=== PATIENT | female | born 1955 | race Caucasian/White ===

== ENCOUNTER 2024-07-02 23:18 | Inpatient (IN) | payer OTHER, SELFPAY ==
[2024-07-02 18:11] VITALS: BP 181/93
[2024-07-02 18:36] LABS: % Basophils 0.2 % (0-2); % Eosinophils 1.3 % (0-6); % Immature Granulocytes 0.4 % (0-0.5); % Lymphocytes 16.1 % (20.5-51.1); Absolute Eosinophils 0.2 10^3/uL (0-0.7); Absolute Immature Granulocytes 0.1 10^3/uL (0-0.05); Absolute Monocytes 0.6 10^3/uL (0.1-0.6); Absolute Neutrophils 9.8 10^3/uL (1.4-6.5); Hematocrit 47.8 % (37.0-47.0); Hemoglobin 16.4 g/dL (12.0-16.0); Mean Corp Hgb Conc. 34.3 g/dL (33.0-37.0); Mean Corpuscular Hgb 30.5 pg (27.0-31.0); Mean Platelet Volume 8.7 fL (7.4-10.4); Nucleated Red Blood Cells % 0 %; Platelet Count 205 10^3/uL (130-400); Red Blood Cell Count 5.37 10^6/uL (4.20-5.40); Red Cell Dist. Width 12.8 % (11.5-14.5); White Blood Cell Count 12.7 10^3/uL (4.8-10.8)
[2024-07-02 18:43] LABS: Urine Albumin 2+ (Neg - Trace); Urine Bilirubin Negative (Negative); Urine Character Cloudy (Clear); Urine Color Yellow; Urine Glucose Negative (Negative); Urine Ketone Negative (Negative); Urine Leukocyte 3+ (Negative); Urine Nitrite Positive (Negative); Urine Occult Blood 4+ (Negative); Urine Specific Gravity 1.025 (<1.030); Urine Urobilinogen Negative (Neg - 1+)
[2024-07-02 18:53] LABS: ALT (SGPT) 42 U/L (0-35); AST (SGOT) 28 U/L (14-36); Albumin 4.6 g/dl (3.5-5.0); Alkaline Phosphatase 79 U/L (38-126); Blood Urea Nitrogen 24 mg/dl (7-17); Calcium 9.8 mg/dl (8.4-10.2); Carbon Dioxide 34 mmol/L (22-30); Chloride 98 mmol/L (98-107); Glucose 123 mg/dl (70-99); Potassium 3.6 mmol/L (3.5-5.1); Sodium 140 mmol/L (135-145); Total Bilirubin 0.8 mg/dl (0.2-1.3); Total Protein 7.5 g/dl (6.3-8.2); eGFR > 60.00
[2024-07-02 19:06] LABS: Urine Urothelial Cell 0-2 /LPF (FEW)
[2024-07-02 19:07] LABS: Urine Bacteria Many (Negative); Urine Red Blood Cell 16-20 /HPF (0-2); Urine White Cell 90-100 /HPF (0-5)
[2024-07-02] MEDS: TORADOL 15 MG IV (19:27)
[2024-07-02] MEDS: NSS 1000 IV (19:27)
[2024-07-02] MEDS: ZOFRAN 4 MG IV (19:27)
--- NOTE | 2024-07-02 19:53 | ED.GENMED ---
History of Present Illness
General
Chief Complaint: Flank Pain
Source: patient
Exam Limitations: none
Time Seen by Provider: 07/02/24 18:36
Nursing documentation reviewed up to this point in time: agreed with
History of Present Illness
History of Present Illness:
Patient is a 68-year-old female presenting to the emergency department w/ left flank pain. Patient reports intermittent left-sided flank pain over the past 2 weeks although reports significant worsening today. She endorses sharp pain from her left
low back radiating to her left lower abdomen. Patient describes waves of pain and states it is worse when she is sitting up. Patient reports constant nausea and frequent dry heaves. Patient denies any associated dysuria or hematuria. No diarrhea
or constipation. No fevers or chills. No chest pain or shortness of breath.
Patient does have a history of kidney stones and states this does feel somewhat similar.
Patient denies any known sick contacts.
Review of Systems
Review of Systems
Allergies reviewed?: Yes
All Other Systems: ROS reviewed and negative except as documented in HPI and ROS
Phy Exam
Physical Exam
Physical Exam:
Vitals: Hypertensive, otherwise vital signs stable. Afebrile
General: Patient is moderately uncomfortable due to pain.
Skin: Warm and dry, no rashes or lesions
Head: Normocephalic, atraumatic
Eyes: Sclera nonicteric. EOMs intact. No nystagmus.
Throat: Protecting airway
Neck: Normal ROM, no cervical spine tenderness, no meningismus
Cardiac: Regular rate and rhythm, no murmurs.
Pulm: Normal respiratory effort, no wheezes, rales, rhonchi heard on exam.
Abdomen: Abdomen soft. Mild diffuse abdominal tenderness without rebound tenderness or guarding. Left-sided CVA tenderness noted
Extremities: No evidence of cyanosis or edema.
Neuro: AAOx3. Grossly intact.
Psychiatric: Normal affect.
Course
Orders/Labs/Results
Orders:
Orders
07/02/24 18:20
Complete Blood Count/With Diff Urgent
Comprehensive Metabolic Panel Urgent
07/02/24 18:25
Urinalysis Reflex To Culture Urgent
Date Specimen was Collected: 07/02/24
Time Specimen was Collected: 18:14
Urine Microscopic Reflex Cult Urgent
Urine Culture Urgent
SHAHID Source: U
Specimen Description:
Date Specimen was Collected: 07/02/24
Time Specimen was Collected: 18:14
07/02/24 19:18
Abdomen/Pelvis wo Contrast CT [CT Abd/pelvis Wo Iv Cont] Urgent
Comment:
Reason For Exam: L flank pain, +N/+V
0.9% Sodium Chloride 1000 ml [Nss] 1,000 ml IV BOLUS
Ketorolac [Toradol] 15 mg IV NOW STA
Ondansetron Injectable [Zofran] 4 mg IV NOW STA
07/02/24 19:53
HYDROmorphone [Dilaudid] 0.5 mg IV NOW STA
07/02/24 21:57
HYDROmorphone [Dilaudid] 0.5 mg IV NOW STA
07/02/24 22:02
CefTRIAXone [Rocephin] 1,000 mg IV NOW STA
07/02/24 22:31
Admit/Transfer Patient As Directed
Co-Sign Provider:
Level of Care: Inpatient admission
Assign to:: Medical/Surgical
Physician / Group: ted
Diagnosis: obstruting ureter stone
Reason for Hospitalization: obstructing ureter stone
Expected length of stay greater than two midnights?: Yes
ELOS- Estimated Length of Stay in days: 3
I certify the patient meets the requirements for IP care: Yes
PRN Pain Medication Management As Directed
May give lesser potent ordered pain med per pt: Yes
preference::
Protocol:: Medication orders for pain may be administered in a
manner that supports deferring to patient preference
when the pt is:
- Requesting an ordered lesser potent pain medication.
Least to most potent pain medications are defined
as: acetaminophen < NSAID < tramadol < opioids
(morphine, oxycodone, hydromorphone).
- Requesting a lesser dose of the same medication IF
ORDERED.
- Requesting a less intrusive route of administration
if both routes are prescribed by the provider (PO <
IV).
07/02/24 22:32
Code Status As Directed
Resuscitation Status: Full Code
07/02/24 23:52
0.9% Sodium Chloride 1000 ml [Nss] 1,000 ml IV 100 mls/hr
Acetaminophen [Tylenol] 650 mg PO Q4HPRN PRN
Bisacodyl [Dulcolax] 10 mg RECTAL [id number] PRN
Docusate W/Senna [Senokot-S] 1 tablet PO BIDPRN PRN
HYDROmorphone [Dilaudid] 1 mg IV Q4HPRN PRN
Oxycodone [Roxicodone] 5 mg PO Q4HPRN PRN
Polyethylene Glycol Powder [Miralax] 17 grams PO DAILYPRN PRN
Tamsulosin [Flomax] 0.4 mg PO DAILY
07/02/24 23:52
UROLOGY CONSULT Routine
Consulting Provider: Reji Mason
Was physician already notified: Yes
Activity As Directed
Activity Level: As Tolerated
Pneumatic Compression Sleeves As Directed
Type: Knee high
Strain Urine As Directed
Vital Signs As Directed
Frequency: Per unit guidelines
DX Deep Vein Thrombosis Video Routine
07/03/24 Breakfast
NPO
Allow oral meds: Yes
Allow clear liquids: No
07/03/24 07:12
Complete Blood Count/No Diff IN AM
07/03/24 08:00
Valsartan [Diovan] 160 mg PO DAILY
07/03/24 22:00
CefTRIAXone [Rocephin] 1,000 mg IV Q24H
07/04/24 06:00
Complete Blood Count/No Diff IN AM
07/05/24 06:00
Complete Blood Count/No Diff IN AM
Abnormal Lab Results
07/02/24 07/02/24
18:20 18:25
WBC 12.7 H 10^3/uL
(4.8-10.8)
Hgb 16.4 H g/dL
(12.0-16.0)
Hct 47.8 H %
(37.0-47.0)
Abs Immat Gran (auto) 0.1 H 10^3/uL
(0-0.05)
Absolute Neuts (auto) 9.8 H 10^3/uL
(1.4-6.5)
Neutrophils % 77.0 H %
(42.2-75.2)
Lymphocytes % 16.1 L %
(20.5-51.1)
Carbon Dioxide 34 H mmol/L
(22-30)
BUN 24 H mg/dl
(7-17)
Glucose 123 H mg/dl
(70-99)
ALT 42 H U/L
(0-35)
Ur Occult Blood Reflex 4+ A
(Negative)
Urine Nitrite (Reflex) Positive A
(Negative)
Leukocyte Esterase Rfl 3+ A
(Negative)
Urine RBC 16-20 A /HPF
(0-2)
Urine WBC (Reflex) 90-100 A /HPF
(0-5)
Urine Bacteria (Reflex) Many A
(Negative)
Urine Albumin (Reflex) 2+ A
(Neg - Trace)
07/02/24 18:20
07/02/24 18:20
Vital Signs
Initial and Last Documented VS:
Initial Vital Signs
Temp Pulse Resp BP Pulse Ox
97.7 F 76 16 181/93 98
07/02/24 18:11 07/02/24 18:11 07/02/24 18:11 07/02/24 18:11 07/02/24 18:11
Last Documented Vital Signs
Temp Pulse Resp BP Pulse Ox
97.8 F 82 18 114/60 93
07/03/24 17:00 07/03/24 18:00 07/03/24 18:00 07/03/24 18:00 07/03/24 18:00
MDM/Problems Addressed
Differential Diagnosis Includes:
Not limited to: Kidney stones, pyelonephritis, cystitis, diverticulitis, muscle strain, etc.
MDM/Problems Addressed:
68-year-old female with history as documented presenting with left flank pain associated with dry heaves. No fevers, chills, dysuria, chest pain, or shortness of breath. Patient hypertensive on arrival, otherwise stable vital signs. She is
afebrile. On exam�patient is in moderate distress due to pain. Abdomen soft with very diffuse tenderness, no rebound tenderness or guarding. Mild left-sided CVA tenderness noted. Basic labs initiated in triage significant for a leukocytosis of
12.7. Otherwise no clinically significant abnormalities. No renal insufficiency urinalysis pending. Differential broad although given history and physical exam�concern for possible kidney stone versus pyelonephritis. Lower suspicion for
diverticulitis. No rash to suggest zoster. Do not suspect MSK etiology at this point. UA pending. Will check noncontrast CT abdomen/pelvis. Will give pain control, IV fluids, Zofran. Will closely monitor and reassess.
Update: UA suspicious for infection, nitrate positive, 3+ leukocyte esterase, and many WBCs, along with many RBCs. CT scan does show a 4 mm obstructing calculus in distal left ureter with moderate hydronephrosis and perinephric edema. Patient has
required multiple rounds of pain medication in the emergency department. Although stone 4 mm in size�given intractable pain along with concern for infected stone given associated UTI�will admit to hospitalist for further management. Penicillin
allergy noted and discussed with patient however she states that she has tolerated amoxicillin in the past. IV Rocephin given in ED. Case was discussed with urology, Dr. Mason.
Chronic conditions affecting care:
History of kidney stones
Acute Exacerbation and/or Progression of Chronic Illness:
N/A
*Radiology
Radiology exam reviewed: radiology read reviewed
*Pulse Oximetry
Patient hypoxic: no
*EKG
Interpreted by ED Provider?: NA
*Wallpaper Inspector And Shipper Interpretation
Rate: Wallpaper Inspector And Shipper- N/A
*Critical Care Note
Total Time (30-74mins, 75-104mins- exclusive of procedures): Not Applicable
Patient Management
Discussion with other providers: Hospitalist and Event Security Officer
Escalation/DeEscalation of care consider admission/obs:
Admit for pain management, IV antibiotic
ED Attending Note
-
Portions of this chart may have been created with voice recognition software.� Occasional wrong word or��sound alike� substitutions may have occurred due to the inherent limitations of voice recognition software.
Discharge Plan
Departure
Patient Disposition: Admit
Date of Disposition: 07/02/24
Time of Disposition: 22:06
Presentation/result/management discussed w/ accepting MD/DO: Hospitalist
Discharge Problem:
Left ureteral calculus, Acute UTI
Interventions
Interventions:
*Risk Screen - Suicide Last Done: 07/02/24 18:11
*General Assessment Last Done: 07/02/24 18:39
*Neglect/Abuse Screening Last Done: 07/02/24 18:11
ED- Fall Risk Assessment Last Done: 07/03/24 05:39
*ED COVID-19 Vaccine History Last Done: 07/02/24 18:39
*Nursing Disposition Last Done: 07/03/24 05:40
CY-Qrggil-Atjwcwjipp Assessment Last Done: 07/02/24 18:40
ED-Female Genitourinary Assessment Last Done: 07/02/24 18:41
Discharge Date and Time
Discharge Date/Time: 07/03/24 05:40
[2024-07-02] MEDS: DILAUDID 0.5 MG IV ×2 (19:56→22:29)
--- NOTE | 2024-07-02 22:16 | HPS.HSE ---
Addendum entered and electronically signed by Michele Akers DO 07/02/24 22:57:
Patient seen and examined independently. Agree with findings and plan as set forth by EDILBERTO Fair.
Patient is a 68y F with PMH significant for nephrolithiasis and hypertension who presents to ED complaining of L flank pain. Pain has been mild / intermittent for a few weeks but became much more severe and unrelenting today. Patient reports
associated nausea / dry heaves. No fevers / chills. She has prior history of kidney stones previously requiring intervention.
Imaging in the ED today reveals 4mm distal L ureteral stone.
Ass:
Left Ureteral Stone
UTI
Benign Hypertension
Plan:
Admit for further evaluation and treatment.
Supportive care, pain control, tamsulosin, etc.
IV ceftriaxone for now.
Urology consulted for possible intervention if stone is not spontaneously passed.
Original Note:
Family Physician
-
Family Physician: Ko Briggs
Chief Complaint
-
left flank pain
History of Present Illness
68-year-old female with PMH for HTN, kidney stones presenting to the emergency department w/ left flank pain for past two week intermittently. today afternoon it progressively got worse with nausea and dry heaving. Patient denies any associated
dysuria or hematuria. No diarrhea or constipation. No fevers or chills. No chest pain or shortness of breath.
CT with 4 MM obstructing stone within the distal left ureter with associated moderate hydroureteronephrosis. UA wit UTI. patient received ceftriaxone and Dilauidid prn for pain
Medical History
Past Medical History
Past Medical History: Reports Other
Additional Past Medical History:
HTN
Past Surgical History: Reports Other
Additional Past Surgical History:
cholecystectomy
kidney stone extraction
Social History
Tobacco: Former Smoker
Alcohol: None
Drug: None
Family History
Family History: Not pertinent
Allergies / Home Medications
Allergies reflects when Allergies were last updated in [facility].
Home Medications with original date entered in [facility]
Allergy/Medication List:
Allergies
Allergy/AdvReac Type Severity Reaction Status Date / Time
Penicillins Allergy Unknown Hives Verified 07/02/24 18:14
Home Medications
valsartan 160 mg-hydrochlorothiazide 25 mg tablet 1 tab PO DAILY 09/18/22
sulfamethoxazole 800 mg-trimethoprim 160 mg tablet 1 tab PO BID 4 days #8 tabs 09/22/22
Review of Systems
-
Constitutional: Reports No Symptoms
EENT: Reports No Symptoms
Respiratory: Reports No Symptoms
Cardiac: Reports No Symptoms
Abdomen/GI: Reports Nausea
: Reports Flank Pain (left flank pain)
Musculoskeletal: Reports No Symptoms
Skin: Reports No Symptoms
Neurological: Reports No Symptoms
Endocrine: Reports No Symptoms
Hematologic/Lymphatic: Reports No Symptoms
Psych: Reports No Symptoms
Physical Exam
Vital Signs
Vital Signs
Temp Pulse Resp BP Pulse Ox
97.7 F 76 16 181/93 98
07/02/24 18:11 07/02/24 18:11 07/02/24 18:11 07/02/24 18:11 07/02/24 18:11
Physical Exam
General: Well Developed, Well Nourished and No Apparent Distress
HEENT: NormoCephalic, Moist mucous membranes and Atraumatic
Respiratory: Clear
Cardiac: S1/S2 and Regular Rhythm; No Murmur or Rub
GI: Soft, Non Tender, Non Distended and Normal Bowel Sounds; No Organomegaly
Rectal: Deferred by Provider
Musculoskeletal: No Clubbing, No Cyanosis and No Edema
Skin: No Rash
Neuro: AO x 3 and Nonfocal/grossly intact
Psych: Calm
Laboratory Results
-
07/02/24 18:20
07/02/24 18:20
Laboratory Results
Total Bilirubin 0.8 mg/dl (0.2-1.3) 07/02/24 18:20
AST 28 U/L (14-36) 07/02/24 18:20
ALT 42 U/L (0-35) H 07/02/24 18:20
Alkaline Phosphatase 79 U/L (38-126) 07/02/24 18:20
Data Reviewed
-
CT Scan: Report Reviewed by me
Lab Data: Labs Reviewed by me
Impression/Plan
-
#intractable pain from obstructing stone of distal left ureter
#UTI
-wbc 12.7
-Ct abdomen pelvis with the impression of 4 mm obstructing stone within the distal left ureter with associated moderate hydroureteronephrosis. Nonspecific left perinephric edema.Hepatomegaly with hepatic steatosis.
Enlarged uterus with numerous calcifications, likely uterine fibroids.
-iv ceftriaxone continued
-Tylenol prn for pain or fever
-oxy, Dilaudid prn for pain
-Flomax added
-ceftriaxone continued
-strain urine
-urology consulted
#hemoconcentration likely dehydration
-hgb 16.4
-fluids continued
-CBC in am
#essential HTN
-valsartan continued
-hold HCTZ
#DVT prophylaxis
-SCD
#CODE status
-full code
[2024-07-02] MEDS: ROCEPHIN 1000 MG IV (22:30)
[2024-07-02 22:37] VITALS: BP 120/59
[2024-07-02 23:00] VITALS: BP 140/71
[2024-07-03] VITALS (15 sets, daily range): BP systolic 110–158; BP diastolic 55–98; BMI 41.2
[2024-07-03] MEDS: NSS 1000 IV ×3 (01:40→22:17)
[2024-07-03] MEDS: FLOMAX 0.4 MG PO ×2 (01:43→08:50)
[2024-07-03] MEDS: ZOFRAN 4 MG IV (02:13)
[2024-07-03] MEDS: ROXICODONE 5 MG PO (04:19)
[2024-07-03] MEDS: DILAUDID 1 MG IV ×2 (05:59→11:39)
--- NOTE | 2024-07-03 08:11 | W.PN.HOSP.TC ---
Today's Communication/Plan
-
Urology taking her to the OR. Continue antibiotics
Assessment / Plan
Assessment / Plan
Physical exam:
General: Acutely ill
HEENT: Normocephalic, Atraumatic and Moist Mucous Membranes
Respiratory: Clear to Auscultation; Negative Wheezes, Rales or Rhonchi
Cardiac: Regular Rhythm and S1/S2
GI: Soft, Tender and Nondistended
Musculoskeletal: No Clubbing, No Cyanosis and No Edema
Neuro: Awake, Alert and Oriented
Psych: Calm
A/P:
#intractable pain from obstructing stone of distal left ureter
#UTI
-wbc 12.7-->18.2
-Ct abdomen pelvis with the impression of 4 mm obstructing stone within the distal left ureter with associated moderate hydroureteronephrosis. Nonspecific left perinephric edema.Hepatomegaly with hepatic steatosis.
Enlarged uterus with numerous calcifications, likely uterine fibroids.
-iv ceftriaxone continued
-Tylenol prn for pain or fever
-oxy, Dilaudid prn for pain
-Flomax added
-ceftriaxone continued. On review of records she had an apparent reaction to cephalosporin on last admission but interestingly she is tolerating cephalosporin okay at this time. Follow-up urine culture
-strain urine
-urology consulted-appreciated input and plan to go to the OR today
#hemoconcentration likely dehydration
-hgb 16.4--> 14.1
-fluids continued
-CBC in am
#essential HTN
-valsartan continued
-hold HCTZ
#DVT prophylaxis
-SCD
#CODE status
-full code
Anticipated Discharge: 24 - 48 hours
Subjective/Interval History
-
Date of Service: July 03, 2024
Patient with significant amount of flank pain. No chest pain or shortness of breath.
Objective Data
-
Labs:
Laboratory Results
07/03/24
07:12
WBC Pending
Hgb Pending
Hct Pending
Plt Count Pending
Vital Signs:
Vital Signs
Temp Pulse Resp BP Pulse Ox
98.6 F 85 18 130/68 96
07/03/24 07:27 07/03/24 07:21 07/03/24 07:21 07/03/24 07:21 07/03/24 07:21
[2024-07-03 08:17] LABS: Hemoglobin 14.1 g/dL (12.0-16.0); Mean Corp Hgb Conc. 32.8 g/dL (33.0-37.0); Mean Corpuscular Hgb 30.3 pg (27.0-31.0); Mean Corpuscular Volume 92.3 fL (81.0-99.0); Mean Platelet Volume 9.1 fL (7.4-10.4); Platelet Count 151 10^3/uL (130-400); Red Blood Cell Count 4.66 10^6/uL (4.20-5.40); Red Cell Dist. Width 12.9 % (11.5-14.5); White Blood Cell Count 18.2 10^3/uL (4.8-10.8)
[2024-07-03] MEDS: DIOVAN 160 MG PO (08:50)
--- NOTE | 2024-07-03 09:43 | W.PN.URO.CBU ---
Today's Communication / Plan
-
npo for op room later toiday
Assessment / Plan
-
4mm stone but intracatable pain consented for surgery will obsrve this am but if still pain then u scope and attemp t to remove stone and leave stent
Diagnosis
-
Date of Service: July 03, 2024
-
Patient Diagnosis:left uretral stone with obstruction 18 k wbc and intractable pain no fever
Post Op Day:
Subjective
-
pain feels poorly
Objective
-
Vital Signs
Temp Pulse Resp BP Pulse Ox
98.6 F 85 18 130/68 96
07/03/24 07:27 07/03/24 07:21 07/03/24 07:21 07/03/24 07:21 07/03/24 07:21
Laboratory Results
07/03/24 07:12
07/02/24 18:20
Review of Systems
-
: Flank Pain
Physical Exam
-
General - well developed, well nourished, painn non toxic
Chest - clear bilaterally
Abdomen - soft, non-tender, positive bowel sounds, left CVAT, no incisional pain or distention
Genitalia - normal
Rectal - normal
Skin - warm & dry with no rash
Neuro - AOx3, no motor deficits
Extremities - no clubbing, no cyanosis, no edema
Incision - clean, dry
Dressing - clean, dry, intact
Care Review
Data Reviewed
Discussed with: Nursing
CT Scan: Image Pers Reviewed
--- NOTE | 2024-07-03 15:52 | W.SUR.POST ---
Surgical Immediate Post Op
Note
Pre Op Diagnosis: left uretal stone with obstruction
Post Op Diagnosis: same
Procedure Performed: left uretroscpy stone extractio withbasket jj stent
flashner
Secondary Surgeons:
Anesthesiageneral:
Estimated Blood Loss: 1
Fluids:
Drains/Shunts: 6 fr 24 cm jj stent
Specimens/Cultures:
Doppler/Duplex/Angio (Y/N):
Complications:0
Operative Findings: 4 mm stone left ureter
[2024-07-03] MEDS: Pyridium 100 MG PO (16:27)
[2024-07-03 19:27] LABS: Hepatitis C Antibody Negative (Negative)
[2024-07-03] MEDS: ROCEPHIN 1000 MG IV (22:17)
[2024-07-03] MEDS: STERILE WATER FOR INJECTION 10 ML IV (22:17)
[2024-07-04] MEDS: ROXICODONE 5 MG PO (00:24)
[2024-07-04 03:55] VITALS: BP 110/60
[2024-07-04 07:15] VITALS: BP 113/66
[2024-07-04] MEDS: NSS 1000 IV (07:38)
[2024-07-04] MEDS: Pyridium 100 MG PO ×2 (07:38)
[2024-07-04] MEDS: DIOVAN 160 MG PO (07:38)
[2024-07-04] MEDS: FLOMAX 0.4 MG PO (07:38)
[2024-07-04] MEDS: TYLENOL 650 MG PO (07:39)
[2024-07-04 07:46] LABS: % Basophils 0.1 % (0-2); % Immature Granulocytes 0.7 % (0-0.5); % Lymphocytes 3.5 % (20.5-51.1); % Monocytes 4.6 % (1.7-9.3); % Neutrophils 91.1 % (42.2-75.2); Absolute Immature Granulocytes 0.1 10^3/uL (0-0.05); Absolute Lymphocytes 0.5 10^3/uL (1.2-3.4); Absolute Monocytes 0.7 10^3/uL (0.1-0.6); Absolute Neutrophils 13.5 10^3/uL (1.4-6.5); Hemoglobin 13.4 g/dL (12.0-16.0); Mean Corp Hgb Conc. 32.7 g/dL (33.0-37.0); Mean Corpuscular Hgb 30.5 pg (27.0-31.0); Mean Corpuscular Volume 93.4 fL (81.0-99.0); Nucleated Red Blood Cells % 0 %; Platelet Count 143 10^3/uL (130-400); Red Blood Cell Count 4.39 10^6/uL (4.20-5.40); White Blood Cell Count 14.8 10^3/uL (4.8-10.8)
[2024-07-04 08:19] LABS: Blood Urea Nitrogen 24 mg/dl (7-17); Calcium 7.9 mg/dl (8.4-10.2); Carbon Dioxide 29 mmol/L (22-30); Chloride 103 mmol/L (98-107); Estimated Creatinine Clearance 111 ml/min; Glucose 127 mg/dl (70-99); Potassium 3.5 mmol/L (3.5-5.1); Sodium 139 mmol/L (135-145); eGFR > 60.00
--- NOTE | 2024-07-04 09:06 | W.PN.URO.CBU ---
Today's Communication / Plan
-
ok for d/c pendinh=[]g input from hospitalist
Assessment / Plan
-
stable post op home with po abs today if ok by hospitalsirt wbc down
Diagnosis
-
Date of Service: July 04, 2024
-
Patient Diagnosis:
Post Op Day:
Patient Diagnosis:left uretral stone with obstruction 18 k wbc and intractable pain no fever
Post Op Day:
Subjective
-
frequency no fevr chills no colic
Objective
-
Vital Signs
Temp Pulse Resp BP Pulse Ox
97.6 F 73 18 113/66 93
07/04/24 07:15 07/04/24 07:15 07/04/24 07:15 07/04/24 07:15 07/04/24 07:15
Intake and Output
07/03/24 07/04/24 07/05/24
06:59 06:59 06:59
Intake Total 1655 / 1655
Output Total 625 / 625
Balance 1030 / 1030
Intake:
Oral fluids 480 / 480
IV fluids (Total) 1175 / 1175
normosol 75 / 75
Output:
Urine, Voided 625 / 625
Other:
Number of approximated MODERATE 1
amounts of urine
How many times incontinent 1
SATURATED amount urine
Laboratory Results
07/04/24 07:12
07/04/24 07:12
Review of Systems
-
: Dysuria and Frequency
Physical Exam
-
General - well developed, well nourished, no acute distress
Chest - clear bilaterally
Abdomen - soft, non-tender, positive bowel sounds, no CVAT, no incisional pain or distention
Genitalia - normal
Rectal - normal
Skin - warm & dry with no rash
Neuro - AOx3, no motor deficits
Extremities - no clubbing, no cyanosis, no edema
Incision - clean, dry
Dressing - clean, dry, intact
Care Review
Data Reviewed
Discussed with: Nursing
--- NOTE | 2024-07-04 09:30 | W.PN.HOSP.TC ---
Addendum entered and electronically signed by Mike Payan MD 07/04/24 16:27:
Obesity
Original Note:
Today's Communication/Plan
-
Discharge planning today
Assessment / Plan
Assessment / Plan
Physical exam:
General: No acute distress
HEENT: Normocephalic, Atraumatic and Moist Mucous Membranes
Respiratory: Clear to Auscultation; Negative Wheezes, Rales or Rhonchi
Cardiac: Regular Rhythm and S1/S2
GI: Soft, Tender and Nondistended
Musculoskeletal: No Clubbing, No Cyanosis and No Edema
Neuro: Awake, Alert and Oriented
Psych: Calm
A/P:
#intractable pain from obstructing stone of distal left ureter
#UTI
-wbc 12.7-->18.2--> 14.8
-Ct abdomen pelvis with the impression of 4 mm obstructing stone within the distal left ureter with associated moderate hydroureteronephrosis. Nonspecific left perinephric edema.Hepatomegaly with hepatic steatosis.
Enlarged uterus with numerous calcifications, likely uterine fibroids.
-iv ceftriaxone continued and now switched to oral antibiotics prior to discharge
-Tylenol prn for pain or fever
-oxy, Dilaudid prn for pain
-Flomax added
-ceftriaxone continued. On review of records she had an apparent reaction to cephalosporin on last admission but interestingly she is tolerating cephalosporin okay at this time. Follow-up urine culture growing E. coli sensitivities pending.
-strain urine
-urology consulted-appreciated input status post cystoscopy, left ureteroscopy, stone manipulation with basket, left double-J stent placement on 07/03.
-Urology cleared for discharge. Can follow-up sensitivity of cultures as outpatient.
-Plan for discharge today
#hemoconcentration likely dehydration
-hgb 16.4--> 14.1
-fluids continued
-CBC OP
#essential HTN
-valsartan continued
-held HCTZ but can resume now
#DVT prophylaxis
-SCD
#CODE status
-full code
Anticipated Discharge: Today
Subjective/Interval History
-
Date of Service: July 04, 2024
Patient feels better. Afebrile
Objective Data
-
Labs:
Laboratory Results
07/04/24
07:12
WBC 14.8 H
Hgb 13.4
Hct 41.0
Plt Count 143
Sodium 139
Potassium 3.5
Chloride 103
Carbon Dioxide 29
BUN 24 H
Creatinine 0.6
Glucose 127 H
Calcium 7.9 L D
Vital Signs:
Vital Signs
Temp Pulse Resp BP Pulse Ox
97.6 F 73 18 113/66 93
07/04/24 07:15 07/04/24 07:15 07/04/24 07:15 07/04/24 07:15 07/04/24 07:15
I&O
07/03/24 07/04/24 07/05/24
06:59 06:59 06:59
Intake Total 1655 / 1655
Output Total 625 / 625
Balance 1030 / 1030
--- NOTE | 2024-07-04 10:18 | PN.CDI ---
CDI
- -
CDI:
Physician Documentation Request
Admit Date: 07/02/24 23:18
Dear Doctor Schuyler,
Patient admitted with ureter stone.
Please review the following and provide your response in the progress notes.
Clinical Indicators:
Height: 5' 4'
Weight: 239 lbs
BMI: 41.1
If possible, please provide an associated diagnosis related to the abnormal BMI, such as:
Obese
Overweight
BMI is not significant
Other
BMI > or = to 40.0
Overweight
Obesity:
Due to excess calories
Drug induced
Due to other cause
Severe or morbid obesity:
With alveolar hypoventilation (Obesity hypoventilation syndrome)
Without alveolar hypoventilation
Use of terms such as suspected, likely, concern for, or probable (associated with a specific diagnosis that is being evaluated, monitored, or treated as if it exists) are acceptable and can be coded in the inpatient setting, when documented at the
time of discharge.
Thank you,
Alison Harvey RN, BSN
CDI Specialist
Available via [facility] text
Please use your independent medical judgment in providing your response.
--- NOTE | 2024-07-04 13:01 | CM ---
Reviewed the chart notes and spoke with the patient at the bedside. The patient resides alone in a one story home with four steps to enter. The patient reports no DME/VN/SNF in the past. The patient confirmed her pharmacy of choice is [facility]
[place]. The patient anticipates being discharged to home today. Patient will drive self home. CM continues to be available to patient/family and is monitoring medical plan for needs at discharge.
Plan: Discharge to home with no needs identified at this time.
--- NOTE | 2024-07-04 13:20 | W.DCSUMMARY ---
Discharge Summary
Discharge Data
Date of Admission: 07/02/24
Date of Discharge: 07/04/24
-
Pending Results: No
Hospital Course
Patient is 68-year-old female came into the hospital with flank pain and found to have 4 mm nonobstructive stone in the distal left ureter with associated hydroureteronephrosis. She also was found to have leukocytosis and abnormal UA. She was
given IV fluids and IV antibiotics. Urology consulted. She was taken to the OR on 07/03 and she had a cystoscopy, left ureteroscopy, stone manipulation with basket, and left double-J stent placed. Patient leukocytosis has improved. Urine cultures
growing E. coli pending sensitivities. Urology cleared her for discharge today and would like her to follow-up with them and PCP for follow-up results of the urine culture. Otherwise, patient hemodynamically stable and afebrile and improving
substantially. She will be discharged relatively stable condition today.
Discharge duration: 32 minutes
Discharge Plan
-
Patient Disposition: Home (Routine Discharge)
Discharge Diagnosis/Procedures: Left ureteric obstructive stone with hydronephrosis. Urinary tract infection
Diet: Low Cholesterol
Activity: As tolerated
Blood Work: Please PCP to order CBC, BMP within 1 week
Referrals:
Reji Mason MD [Active] - (call sdr jamie to arrange removal stent [phone] While stent is in ... expect frequency urgency and blood in urine)
Ko Briggs DO [Family Provider] - in less than 1 week
Prescriptions:
New
phenazopyridine 100 mg Tablet
100 mg PO Q8 Qty: 10 0RF
polyethylene glycol 3350 17 gram Powder In Packet
17 g PO DAILY 14 Days Qty: 14 0RF
cephalexin 500 mg capsule
500 mg PO BID Qty: 14 0RF
oxycodone 5 mg capsule
5 mg PO Q8H PRN (Reason: Pain) Qty: 14 0RF
Continued
valsartan-hydrochlorothiazide 160-25 mg Tablet
1 tab PO DAILY
Discontinued
naproxen sodium [Aleve] 220 mg Tablet
220 mg PO BIDPRN PRN (Reason: mild pain)
Discharge Orders:
Discharge Patient (As Directed); Ordered 07/04/24
Ordered By: Mike Payan
Discharge Date and Time
Discharge Date/Time: 07/04/24 14:48
Print Language: PUERT[place] RICAN
[2024-07-04] MEDS: PREVNAR 20 0.5 ML IM (13:52)
[2024-07-04] MEDS: KEFLEX 500 MG PO (13:52)
[2024-07-04 14:10] VITALS: BP 134/64
== END 2024-07-04 14:48 | disposition home or self-care (01) | DRG 660 ==
LOC: 3 WEST ACU 23:18
PROVIDERS: Registered Nurse; ADMITTING PHYSICIAN Hospitalist; ATTENDING PHYSICIAN Hospitalist; CONSULT PHYSICIAN Specialist; EMERGENCY PHYSICIAN Emergency Medicine; FAMILY PHYSICIAN Family Medicine
PROC: 0TC78ZZ Extirpation of Matter from Left Ureter, Via Natural or Artificial Opening Endoscopic (ICD-10-PCS; 2024-07-03)
PROC: 0T778DZ Dilation of Left Ureter with Intraluminal Device, Via Natural or Artificial Opening Endoscopic (ICD-10-PCS; 2024-07-03)
DX: N13.2 Hydronephrosis with renal and ureteral calculous obstruction (principal); Z68.41 Body mass index [BMI] 40.0-44.9, adult; N39.0 Urinary tract infection, site not specified; E66.9 Obesity, unspecified; K76.0 Fatty (change of) liver, not elsewhere classified; D25.9 Leiomyoma of uterus, unspecified; E86.0 Dehydration; I10 Essential (primary) hypertension; Z87.442 Personal history of urinary calculi; Z87.891 Personal history of nicotine dependence; Z88.0 Allergy status to penicillin; N81.10 Cystocele, unspecified; Z90.49 Acquired absence of other specified parts of digestive tract
CPT/HCPCS: 71046; 74018; 74176; 76000; 80048; 80053; 81003; 81015; 85025; 85027; 86803; 87077; 87086; 87186; 90677; 96361; 96374; 96375; 96376; 99285; A4300; C1894; C2617; G0009